=== PATIENT | female | born 1950 | race Caucasian/White ===

== ENCOUNTER 2019-02-08 15:45 | Emergency (ER) | payer MEDICARE ==
[~2019-02-08] VITALS: Ht 162.6 cm; Wt 98.0 kg
--- OUTSIDE RECORDS SUMMARY | 2019-02-08 15:48 | XMS REPORT | Clinical Summary ---
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 Active glimepiride (AMARYL) 4 MG Take 4 mg by 0 tablet mouth daily. Active HYDROcodone-acetaminophen Take 1 tablet 0 (NORCO) 10-325 mg per by mouth tablet every 8 (eight) hours as needed for moderate pain. Active insulin GLARGINE (LANTUS) Inject 70 0 100 unit/mL injection Units under (vial) the skin nightly. Active pregabalin (LYRICA) 150 Take 150 mg 0 MG capsule by mouth 3 (three) times a day. Active omeprazole (PriLOSEC) 20 Take 20 mg by 0 MG capsule mouth daily. Active rOPINIRole (REQUIP) 0.25 Take 0.25 mg 0 MG tablet by mouth nightly. Active tiZANidine (ZANAFLEX) 4 Take 4 mg by 0 MG tablet mouth every 8 (eight) hours as needed. Active coenzyme Q10 (COQ-10) 100 Take 100 mg 0 mg capsule by mouth daily. Active levothyroxine (SYNTHROID, Take 175 mcg 0 LEVOXYL) 175 mcg tablet by mouth every morning. Active rosuvastatin (CRESTOR) 20 Take 20 mg by 0 MG tablet mouth daily. Active nitroglycerin (NITROSTAT) Place 0.4 mg 0 0.4 MG SL tablet under the tongue every 5 (five) minutes as needed for chest pain. Active insulin ASPART (NovoLOG Inject 20 0 Flexpen) 100 unit/mL Units under insulin pen the skin 3 (three) times a day with meals. Active Problems Problem Noted Date Altered mental status 08/04/2017 Chest pain 03/01/2017 Social History Date Tobacco Use Types Packs/Day Years Used Quit: 1984 Former Smoker Cigarettes Smokeless Tobacco: Never Used Alcohol Use Drinks/Week oz/Week Comments Yes 1 Glasses of 0.6 once a month wine Sex Assigned at Date Recorded Not on file Industry Job Start Date Occupation Not on file Not on file Not on file Travel End Travel History Travel Start No recent travel history available. Last Filed Vital Signs Not on file Plan of Treatment Health Maintenance Due Date Last Done Comments BREAST CANCER SCREENING 1998 COLONOSCOPY SCREENING 1998 SHINGLES VACCINES (#1) 1998 INFLUENZA VACCINE 03/28/2019 05/18/2017, 05/31/2016, 07/06/2015, Additional history exists 65+ PNEUMOCOCCAL VACCINE Completed 07/18/2016, 06/24/2014, 01/20/2009 Results Not on fileafter 02/07/2018 Insurance Type Payer Benefit Subscriber ID Effective Phone Address Plan / Dates Group HMO [employer] xxxxxxxxx 2010-P ANISH nunes Advance Directives Patient has advance care planning documents, and code status on file. For more i nformation, please contact: Piter Valdez [address] [place] [address] Date Inactivated Comments Code Status Date Activated 03/02/2017 11:04 PM Full Code 03/01/2017 11:50 PM Code Status decision reached by: Patient
--- OUTSIDE RECORDS SUMMARY | 2019-02-08 15:49 | XMS REPORT | Clinical Summary ---
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 Name Role Phone Rikki Hansen MD PCP Allergies Comments Active Allergy Reactions Severity Noted Date Adhesive Rash Low 2013 Atorvastatin 05/18/2017 Celecoxib High 03/26/2013 Clindamycin Rash High 07/31/2017 Codeine Nausea And High 08/31/2013 Vomiting Iodine 03/01/2017 Iodine And Iodide Hives High 03/26/2013 Containing Products Losartan 03/01/2017 Meloxicam 03/01/2017 Pravastatin 03/01/2017 Shellfish Containing 07/31/2017 Products Shellfish Derived 03/01/2017 Sulfa (Sulfonamide Hives High 03/26/2013 Antibiotics) Rofecoxib Hives, Rash High 06/06/2007 Medications End Date Status Medication Sig Dispensed Refills Start Date Active ascorbic acid, vitamin C, Take 250 mg 0 (VITAMIN C) 250 MG tablet by mouth daily. Active saliva stimulant comb. Place in the 0 no.3 (BIOTENE mouth or MOISTURIZING MOUTH) [place] throat Active diclofenac 1 % Gel Apply 0 topically to 7 affected joints twice daily Active hydrocortisone 2.5 % Apply twice 0 lotion daily to 6 affected area on face and ears as needed Active NITROGLYCERIN SL Place 1 0 tablet under the tongue every 5 (five) minutes as needed (chest pain) . Active nystatin (MYCOSTATIN) Apply BID for 0 100,000 unit/gram powder one week then 6 prn. Active cholecalciferol, vitamin Take 2,000 0 D3, 2,000 unit Cap Units by mouth. Active DULoxetine (CYMBALTA) 60 TAKE ONE 0 MG capsule CAPSULE BY 7 MOUTH TWICE A DAY Active glimepiride (AMARYL) 4 MG TAKE ONE 0 tablet TABLET BY 7 MOUTH DAILY Active insulin aspart (NOVOLOG) 20 Units 3 0 100 unit/mL InPn (three) times 6 daily before meals . Active insulin glargine (LANTUS INJECT 70 0 SOLOSTAR) 100 unit/mL (3 UNITS UNDER 6 mL) InPn THE SKIN EVERY EVENING Active levocetirizine (XYZAL) 5 TAKE ONE 0 MG tablet TABLET BY 7 MOUTH DAILY AT 5:00 PM Active levothyroxine (SYNTHROID, Take 175 mcg 0 LEVOTHROID) 175 MCG by mouth 6 tablet Every morning on an empty stomach . Active pregabalin (LYRICA) 150 TAKE ONE 0 MG capsule CAPSULE BY 7 MOUTH TWICE A DAY Active omeprazole (PRILOSEC) 20 TAKE ONE 0 MG capsule CAPSULE BY 7 MOUTH DAILY Active rOPINIRole (REQUIP) 0.25 TAKE ONE 0 MG tablet TABLET BY 7 MOUTH EVERY NIGHT AT BEDTIME Active rosuvastatin (CRESTOR) 20 Take 20 mg by 0 MG tablet mouth nightly 7 . Active tiZANidine (ZANAFLEX) 4 TAKE ONE 0 MG tablet TABLET BY 7 MOUTH THREE TIMES A DAY NEEDED FOR MUSCLE SPASMS Active traZODone (DESYREL) 50 MG Take 50 mg by 0 tablet mouth every 6 night as needed for Sleep . Active valACYclovir (VALTREX) TAKE ONE 0 500 MG tablet TABLET BY 7 MOUTH DAILY Active coenzyme Q10 100 mg Take 100 mg 0 capsule by mouth daily . 08/12/2018 aspirin 81 MG EC tablet Take 1 tablet 0 (81 mg total) 7 by mouth daily. 08/11/2018 carvedilol (COREG) 3.125 Take 1 tablet 0 MG tablet (3.125 mg 7 total) by mouth 2 (two) times daily. 08/12/2018 clopidogrel (PLAVIX) 75 Take 1 tablet 0 mg tablet (75 mg total) 7 by mouth daily. Active Problems Problem Noted Date Syncope, unspecified syncope type 08/08/2017 Near syncope 07/31/2017 Dyspnea 07/05/2017 Hyponatremia 07/05/2017 Type 2 diabetes mellitus with hyperglycemia, with long-term current use of 07/05/2017 insulin Social History Date Tobacco Use Types Packs/Day Years Used Quit: 08/28/1979 Former Smoker Cigarettes 0.5 2.5 Smokeless Tobacco: Never Used Alcohol Use Drinks/Week oz/Week Comments Yes Occasional Sex Assigned at Date Recorded Not on file Industry Job Start Date Occupation Not on file Not on file Not on file Travel End Travel History Travel Start No recent travel history available. Last Filed Vital Signs Not on file Plan of Treatment Not on file Results Not on fileafter 02/07/2018 Insurance Payer Benefit Subscriber ID Type Phone Address Plan / Group [employer] xxxxxxxxx [facility] Advance Directives For more information, please contact: [facility] [address] [place] [address] Date Inactivated Comments Code Status Date Activated 08/11/2017 9:02 PM Full Code 08/08/2017 10:05 PM This code status was determined by: Patient 08/02/2017 7:53 PM Full Code 07/31/2017 12:28 PM This code status was determined by: Patient 07/06/2017 3:29 PM Full Code 07/05/2017 12:01 AM This code status was determined by: Patient
--- OUTSIDE RECORDS SUMMARY | 2019-02-08 15:49 | XMS REPORT ---
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 Allergies, Adverse Reactions, Alerts This patient has no known allergies or adverse reactions. Medications This patient has no known medications. Results Test Description Test Time Test Comments Text Results Atomic Results Result Comments BLOOD CULTURE 2017-08-13 23:00:00 CULTURE (BEAKER) (test quzu=1048) No growth in 5 days BLOOD [id number] 23:00:00* Test Item Value Reference Range Comments CULTURE (BEAKER) (test xswy=5318) No growth in 5 days POCT-GLUCOSE [id number] 11:47:00* Test Item Value Reference Range Comments POC-GLUCOSE METER (BEAKER) (test gdhy=5349) 158 mg/dL 70-110 TESTED AT [address] [address] POCT-GLUCOSE [id number] 10:02:00* Test Item Value Reference Range Comments POC-GLUCOSE METER (BEAKER) (test hamp=3435) 191 mg/dL 70-110 TESTED AT [address] [address] [id number] 06:32:00* Test Item Value Reference Range Comments PHOSPHORUS (BEAKER) (test uexo=338) 3.3 mg/dL 2.3-4.7 [id number] 06:32:00* Test Item Value Reference Range Comments MAGNESIUM (BEAKER) (test ujrl=542) 1.9 mg/dL 1.6-2.6 BASIC METABOLIC [id number] 06:32:00* Test Item Value Reference Range Comments SODIUM (BEAKER) (test dfqs=423) 140 meq/L 136-145 POTASSIUM (BEAKER) (test bvmr=351) 3.8 meq/L 3.5-5.1 CHLORIDE (BEAKER) (test nvry=883) 105 meq/L 98-107 CO2 (BEAKER) (test dtkw=485) 27 meq/L 22-29 BLOOD UREA NITROGEN (BEAKER) (test nucd=917) 8 mg/dL 7-21 CREATININE (BEAKER) (test jdvy=346) 0.75 mg/dL 0.57-1.25 GLUCOSE RANDOM (BEAKER) (test bskt=278) 120 mg/dL 70-105 CALCIUM (BEAKER) (test bbvr=982) 8.6 mg/dL 8.4-10.2 EGFR (BEAKER) (test rnva=4352) 77 mL/min/1.73 sq m ESTIMATED GFR IS NOT ACCURATE CREATININE CLEARANCE IN PREDICTING GLOMERULAR FILTRATION RATE. ESTIMATED GFR IS NOT APPLICABLE FOR DIALYSIS PATIENTS. CBC W/PLT COUNT & AUTO [id number] 06:15:00* Test Item Value Reference Range Comments WHITE BLOOD CELL COUNT (BEAKER) (test vepi=061) 10.6 K/ L 3.5-10.5 RED BLOOD CELL COUNT (BEAKER) (test ctvu=605) 4.22 M/ L 3.93-5.22 HEMOGLOBIN (BEAKER) (test cedz=543) 12.3 GM/DL 11.2-15.7 HEMATOCRIT (BEAKER) (test fzej=879) 37.7 % 34.1-44.9 MEAN CORPUSCULAR VOLUME (BEAKER) (test dlog=287) 89.3 fL 79.4-94.8 MEAN CORPUSCULAR HEMOGLOBIN (BEAKER) (test cxmu=763) 29.1 pg 25.6-32.2 MEAN CORPUSCULAR HEMOGLOBIN CONC (BEAKER) (test vxan=881) 32.6 GM/DL 32.2-35.5 RED CELL DISTRIBUTION WIDTH (BEAKER) (test iold=107) 14.1 % 11.7-14.4 PLATELET COUNT (BEAKER) (test tfjm=141) 212 K/CU MM 150-450 MEAN PLATELET VOLUME (BEAKER) (test rfbi=452) 10.5 fL 9.4-12.3 NUCLEATED RED BLOOD CELLS (BEAKER) (test wirq=515) 0 /100 WBC 0-0 NEUTROPHILS RELATIVE PERCENT (BEAKER) (test boqr=105) 54 % LYMPHOCYTES RELATIVE PERCENT (BEAKER) (test tmux=480) 34 % MONOCYTES RELATIVE PERCENT (BEAKER) (test sdqj=208) 8 % EOSINOPHILS RELATIVE PERCENT (BEAKER) (test olsd=257) 3 % BASOPHILS RELATIVE PERCENT (BEAKER) (test jqaa=683) 1 % NEUTROPHILS ABSOLUTE COUNT (BEAKER) (test fpxt=291) 5.72 K/ L 1.56-6.13 LYMPHOCYTES ABSOLUTE COUNT (BEAKER) (test qpci=678) 3.65 K/ L 1.18-3.74 MONOCYTES ABSOLUTE COUNT (BEAKER) (test qeye=290) 0.80 K/ L 0.24-0.36 EOSINOPHILS ABSOLUTE COUNT (BEAKER) (test awct=842) 0.35 K/ L 0.04-0.36 BASOPHILS ABSOLUTE COUNT (BEAKER) (test ojuw=680) 0.08 K/ L 0.01-0.08 IMMATURE GRANULOCYTES-RELATIVE PERCENT (BEAKER) (test gsyo=1967) 0 % 0-1 POCT-GLUCOSE [id number] 22:17:00* Test Item Value Reference Range Comments POC-GLUCOSE METER (BEAKER) (test zbqu=8134) 171 mg/dL 70-110 TESTED AT [place] [id number] [facility] [address] POCT-GLUCOSE [id number] 17:06:00* Test Item Value Reference Range Comments POC-GLUCOSE METER (BEAKER) (test nrcj=6259) 111 mg/dL 70-110 TESTED AT [address] [address] URINE [id number] 14:09:00* Test Item Value Reference Range Comments CULTURE (BEAKER) (test tuyw=7997) 20-29,000 col/mL skin rafaela POCT-GLUCOSE [id number] 11:53:00* Test Item Value Reference Range Comments POC-GLUCOSE METER (BEAKER) (test vftg=1491) 151 mg/dL 70-110 TESTED AT [place] [id number] [facility] [address] EEG AWAKE AND [id number] 10:00:00Reason for exam:->syncope, recent stroke EEG [facility] DATE: EE #: [id number] Code: #: R55: Syncope and Colla pse (ICD 9: 780.2)CPT Code: #: 12946: 02. EEG awake and asleep; 20-40 minPROCE DURE: EEG CONDITIONS OF RECORDING: This is a digital EEG performed using disc e lectrodes placed according to the International 10-20 system of electrode placem ent. Scalp to scalp and scalp to ear montages were used. No sedation was given .DESCRIPTION OF RECORD: In the best awake state, a Posterior Dominant Rhythm (P DR) was present at 9-10cycles/ second. There was no focal asymmetry in the backg round. No interictal epileptiform discharges were noted. No clinical or electrog raphic seizures were noted. Stage 2 sleep was indicated by the presence of sleep spindles and K complexes. Hyperventilation produced physiologic slowing of the background. Photic stimulation produced a bilaterally symmetric photic driving r esponse The heart rate was 64/ min.IMPRESSION: This is a normal EEG in wakefulne ss and sleep. COMMENT: A normal EEG does not rule out the diagnosis of a seizure disorder. Further clinical correlation is suggested.Clinical Fellow: Kalina Montoya aidyNeurophysiologist: Roxy Gray GLOBIN [id number] 09:55:00* Test Item Value Reference Range Comments HEMOGLOBIN A1C (BEAKER) (test cics=371) 6.9 % 4.3-6.1 POCT-GLUCOSE [id number] 09:51:00* Test Item Value Reference Range Comments POC-GLUCOSE METER (BEAKER) (test dzqr=9127) 154 mg/dL 70-110 TESTED AT [address] [address] LIPID [id number] 05:43:00* Test Item Value Reference Range Comments TRIGLYCERIDES (BEAKER) (test ukqb=632) 113 mg/dL CHOLESTEROL (BEAKER) (test daqf=487) 125 mg/dL HDL CHOLESTEROL (BEAKER) (test zsxq=708) 32 mg/dL LDL CHOLESTEROL CALCULATED (BEAKER) (test qxrs=204) 70 mg/dL Triglyceride Reference Range: Low Risk <150 Borderline 150-199 High Risk 200-499 Very High Risk >=500Cholesterol Reference Range: Low Risk <200 Borderline 200-239 High Risk >240HDL Cholesterol Reference Range: Low Risk >=60 High Risk <40LDL Cholesterol Reference Range: Optimal <100 Near Optimal 100-129 Borderline 130-159 High 160-189 Very High >=190 BASIC METABOLIC [id number] 05:43:00* Test Item Value Reference Range Comments SODIUM (BEAKER) (test lzho=310) 143 meq/L 136-145 POTASSIUM (BEAKER) (test ejzc=089) 3.4 meq/L 3.5-5.1 CHLORIDE (BEAKER) (test jnmu=639) 109 meq/L 98-107 CO2 (BEAKER) (test hazp=698) 25 meq/L 22-29 BLOOD UREA NITROGEN (BEAKER) (test aqkp=956) 9 mg/dL 7-21 CREATININE (BEAKER) (test weow=293) 0.71 mg/dL 0.57-1.25 GLUCOSE RANDOM (BEAKER) (test fioa=807) 105 mg/dL 70-105 CALCIUM (BEAKER) (test ovjk=124) 8.4 mg/dL 8.4-10.2 EGFR (BEAKER) (test oebe=9293) 82 mL/min/1.73 sq m ESTIMATED GFR IS NOT ACCURATE CREATININE CLEARANCE IN PREDICTING GLOMERULAR FILTRATION RATE. ESTIMATED GFR IS NOT APPLICABLE FOR DIALYSIS PATIENTS. [id number] 05:43:00* Test Item Value Reference Range Comments MAGNESIUM (BEAKER) (test udrq=604) 1.8 mg/dL 1.6-2.6 [id number] 05:43:00* Test Item Value Reference Range Comments PHOSPHORUS (BEAKER) (test elqq=187) 2.4 mg/dL 2.3-4.7 CBC W/PLT COUNT & AUTO [id number] 05:26:00* Test Item Value Reference Range Comments WHITE BLOOD CELL COUNT (BEAKER) (test arpf=452) 9.9 K/ L 3.5-10.5 RED BLOOD CELL COUNT (BEAKER) (test lyfk=127) 3.88 M/ L 3.93-5.22 HEMOGLOBIN (BEAKER) (test crdm=662) 11.3 GM/DL 11.2-15.7 HEMATOCRIT (BEAKER) (test wttx=578) 34.5 % 34.1-44.9 MEAN CORPUSCULAR VOLUME (BEAKER) (test nidi=485) 88.9 fL 79.4-94.8 MEAN CORPUSCULAR HEMOGLOBIN (BEAKER) (test agpm=395) 29.1 pg 25.6-32.2 MEAN CORPUSCULAR HEMOGLOBIN CONC (BEAKER) (test aavg=369) 32.8 GM/DL 32.2-35.5 RED CELL DISTRIBUTION WIDTH (BEAKER) (test wjgq=987) 14.2 % 11.7-14.4 PLATELET COUNT (BEAKER) (test rgtz=945) 205 K/CU MM 150-450 MEAN PLATELET VOLUME (BEAKER) (test plih=651) 10.8 fL 9.4-12.3 NUCLEATED RED BLOOD CELLS (BEAKER) (test ygxn=372) 0 /100 WBC 0-0 NEUTROPHILS RELATIVE PERCENT (BEAKER) (test nzkn=809) 59 % LYMPHOCYTES RELATIVE PERCENT (BEAKER) (test kulo=681) 29 % MONOCYTES RELATIVE PERCENT (BEAKER) (test tfpb=149) 8 % EOSINOPHILS RELATIVE PERCENT (BEAKER) (test eoqw=673) 3 % BASOPHILS RELATIVE PERCENT (BEAKER) (test rlsy=169) 1 % NEUTROPHILS ABSOLUTE COUNT (BEAKER) (test qrar=852) 5.80 K/ L 1.56-6.13 LYMPHOCYTES ABSOLUTE COUNT (BEAKER) (test hbdi=931) 2.89 K/ L 1.18-3.74 MONOCYTES ABSOLUTE COUNT (BEAKER) (test flmp=630) 0.80 K/ L 0.24-0.36 EOSINOPHILS ABSOLUTE COUNT (BEAKER) (test hjmk=015) 0.32 K/ L 0.04-0.36 BASOPHILS ABSOLUTE COUNT (BEAKER) (test qksn=542) 0.06 K/ L 0.01-0.08 IMMATURE GRANULOCYTES-RELATIVE PERCENT (BEAKER) (test frtn=7767) 0 % 0-1 POCT-GLUCOSE [id number] 21:13:00* Test Item Value Reference Range Comments POC-GLUCOSE METER (BEAKER) (test mzha=2069) 205 mg/dL 70-[address] [facility] [address] [facility] [address] POCT-GLUCOSE [id number] 17:52:00* Test Item Value Reference Range Comments POC-GLUCOSE METER (BEAKER) (test aatx=9474) 170 mg/dL 70-[address] [facility] [address] [facility] [address] MR, BRAIN, WITHOUT [id number] 16:37:00Reason for exam:->Ischemic Stroke EvaluationFINAL REPORT MRI brain without contrast INDICATION: Stroke, syncope, fainting TECHNIQUE: Multiplanar, multisequence MR imaging of the brain was performed utilizing the following imaging sequences: Axial T2, FLAIR, GRE, and DWI; sagittal and coronal T1 COMPARISON: CT head 08/08/2017, 07/31/2017 FINDINGS:There is a recent infarct involving the left caudate nucleus body, adjacent internal capsule, and lentiform nucleus. There is also a small recent inferior right cerebellar infarct. 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 The major proximal [place] flow voids are maintained. There is generalized parenchymal volume loss. The sella, craniocervical junction, and orbits are unremarkable. There is mild right and minimal left mastoid air cell fluid with well aerated sinuses. There is heterogeneous marrow signal with calvarial hyperostosis. IMPRESSION: 1. Recent nonhemorrhagic small volume left striatocapsular and right cerebellar infarcts. 2. Chronic white matter changes suggesting microvascular ischemia with lacunar infarcts. 3. Additional chronic and involutional findings as discussed. Signed: Raul Alva [facility] Verified Date/Time: 08/09/2017 16:37:09 Reading Location: [address] Consult Reading Room , MRA, BRAIN, WITHOUT [id number] 16:25:00Reason for exam:-> Ischemic Stroke EvaluationFINAL REPORT MRA head and neck without contrast INDICATION: Stroke, syncope, fainting TECHNIQUE: 2-D and 3-D lqjp-mu-akxffe MRA images of the intra- and extracranial carotid and vertebral artery circulations were obtained, from which maximal intensity projection reconstructions were generated. COMPARISON: None available FINDINGS: MRA neck:There is carotid bifurcation and bulb mural thickening suggesting atherosclerosis without measurable ICA stenosis bilaterally by NASCET criteria. Bilateral mid to distal cervical ICA irregular contour is suspicious for fibromuscular dysplasia. There is antegrade flow in the cervical vertebral arteries without flow limitation. The left vertebral artery is dominant. The right vertebral artery origin is not imaged. Multilevel cervical spine degenerative changes are suboptimally depicted on this exam, with up to moderate mid cervical spinal canal stenosis. Dedicated spinal imaging can be obtained as clinically warranted. 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 Carotid siphon contour irregularities to suggest atherosclerosis. No flow limiting proximal [place] vessel stenosis or major branch occlusion is seen. Allowing for motion, no definite aneurysm is identified. IMPRESSION: 1. No hemodynamically significant cervical carotid artery stenosis by NASCET criteria. 2. Bilateral mid to distal cervical ICA irregularity suspicious for fibromu scular dysplasia. 3. No significant stenosis in the imaged cervical vertebral ar teries. 4. No [place] major branch occlusion or flow limiting stenosis. Signed: Raul Alva MDReport Verified Date/Time: 08/09/2017 16:25:25 Reading Location: [address] Consult Reading Room , MRA, NECK, WITHOUT IV [id number] 16:25:00Reason for exam:->Ischemic Stroke EvaluationFINAL REPORT MRA head and neck without contrast INDICATION: Stroke, syncope, fainting TECHNIQUE: 2-D and 3-D pdhh-fx-bajted MRA images of the intra- and extracranial carotid and vertebral artery circulations were obta ined, from which maximal intensity projection reconstructions were generated. CO MPARISON: None available FINDINGS: MRA neck:There is carotid bifurcation and bul b mural thickening suggesting atherosclerosis without measurable ICA stenosis bi laterally by NASCET criteria. Bilateral mid to distal cervical ICA irregular con tour is suspicious for fibromuscular dysplasia. There is antegrade flow in the c ervical vertebral arteries without flow limitation. The left vertebral artery is dominant. The right vertebral artery origin is not imaged. Multilevel cervical spine degenerative changes are suboptimally depicted on this exam, with up to mo derate mid cervical spinal canal stenosis. Dedicated spinal imaging can be obtai avani as clinically warranted. 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 Carotid siphon contour irregularities to suggest atherosclerosis. No fl ow limiting proximal [place] vessel stenosis or major branch occlusion is seen. Allowing for motion, no definite aneurysm is identified. IMPRESSION: 1. No hemodynamically significant cervical carotid artery stenosis by NASCET crite leonid. 2. Bilateral mid to distal cervical ICA irregularity suspicious for fibromu scular dysplasia. 3. No significant stenosis in the imaged cervical vertebral ar teries. 4. No [place] major branch occlusion or flow limiting stenosis. Signed: Raul Alva MDReport Verified Date/Time: 08/09/2017 16:25:25 Reading Location: [id number] Consult Reading Room -GLUCOSE [id number] 11:48:00* Test Item Value Reference Range Comments POC-GLUCOSE METER (BEAKER) (test cipj=8232) 114 mg/dL 70-110 TESTED AT [place] [id number] [facility] [address] TSH/FREE T4 IF [id number] 11:13:00* Test Item Value Reference Range Comments THYROID STIMULATING HORMONE (BEAKER) (test lerw=818) 1.95 uIU/mL 0.35-4.94 POCT-GLUCOSE [id number] 08:10:00* Test Item Value Reference Range Comments POC-GLUCOSE METER (BEAKER) (test fogm=4854) 149 mg/dL 70-[address] [facility] [address] [facility] [address] [id number] 08:01:00* Test Item Value Reference Range Comments PHOSPHORUS (BEAKER) (test qacq=667) 2.8 mg/dL 2.3-4.7 [id number] 08:01:00* Test Item Value Reference Range Comments MAGNESIUM (BEAKER) (test lwtd=100) 1.6 mg/dL 1.6-2.6 BASIC METABOLIC [id number] 08:01:00* Test Item Value Reference Range Comments SODIUM (BEAKER) (test hmgz=300) 143 meq/L 136-145 POTASSIUM (BEAKER) (test kxpo=986) 3.7 meq/L 3.5-5.1 CHLORIDE (BEAKER) (test buqv=168) 112 meq/L 98-107 CO2 (BEAKER) (test ddih=029) 22 meq/L 22-29 BLOOD UREA NITROGEN (BEAKER) (test ypft=857) 11 mg/dL 7-21 CREATININE (BEAKER) (test kunu=484) 0.80 mg/dL 0.57-1.25 GLUCOSE RANDOM (BEAKER) (test yvuv=523) 145 mg/dL 70-105 CALCIUM (BEAKER) (test ghho=739) 8.1 mg/dL 8.4-10.2 EGFR (BEAKER) (test ajww=7728) 71 mL/min/1.73 sq m ESTIMATED GFR IS NOT ACCURATE CREATININE CLEARANCE IN PREDICTING GLOMERULAR FILTRATION RATE. ESTIMATED GFR IS NOT APPLICABLE FOR DIALYSIS PATIENTS. [id number] 07:55:00* Test Item Value Reference Range Comments CORTISOL, TOTAL (BEAKER) (test deru=5056) 10.4 ug/dL 3.7-19.4 CBC W/PLT COUNT & AUTO [id number] 07:33:00* Test Item Value Reference Range Comments WHITE BLOOD CELL COUNT (BEAKER) (test mplp=867) 8.5 K/ L 3.5-10.5 RED BLOOD CELL COUNT (BEAKER) (test dpwi=791) 3.70 M/ L 3.93-5.22 HEMOGLOBIN (BEAKER) (test dpcp=856) 10.9 GM/DL 11.2-15.7 HEMATOCRIT (BEAKER) (test oecy=310) 33.7 % 34.1-44.9 MEAN CORPUSCULAR VOLUME (BEAKER) (test mpdq=983) 91.1 fL 79.4-94.8 MEAN CORPUSCULAR HEMOGLOBIN (BEAKER) (test vkka=946) 29.5 pg 25.6-32.2 MEAN CORPUSCULAR HEMOGLOBIN CONC (BEAKER) (test nemo=356) 32.3 GM/DL 32.2-35.5 RED CELL DISTRIBUTION WIDTH (BEAKER) (test alaw=857) 14.2 % 11.7-14.4 PLATELET COUNT (BEAKER) (test rxec=805) 184 K/CU MM 150-450 Discordant result compared to previous result; clinical correlation required.' MEAN PLATELET VOLUME (BEAKER) (test ncqn=273) 10.9 fL 9.4-12.3 NUCLEATED RED BLOOD CELLS (BEAKER) (test jqpf=480) 0 /100 WBC 0-0 NEUTROPHILS RELATIVE PERCENT (BEAKER) (test stwq=287) 57 % LYMPHOCYTES RELATIVE PERCENT (BEAKER) (test jrpj=454) 30 % MONOCYTES RELATIVE PERCENT (BEAKER) (test ztki=662) 8 % EOSINOPHILS RELATIVE PERCENT (BEAKER) (test pcdj=421) 4 % BASOPHILS RELATIVE PERCENT (BEAKER) (test ykhf=919) 1 % NEUTROPHILS ABSOLUTE COUNT (BEAKER) (test ioyd=119) 4.87 K/ L 1.56-6.13 LYMPHOCYTES ABSOLUTE COUNT (BEAKER) (test hstb=800) 2.50 K/ L 1.18-3.74 MONOCYTES ABSOLUTE COUNT (BEAKER) (test ubrd=798) 0.65 K/ L 0.24-0.36 EOSINOPHILS ABSOLUTE COUNT (BEAKER) (test zmhd=097) 0.36 K/ L 0.04-0.36 BASOPHILS ABSOLUTE COUNT (BEAKER) (test mcth=933) 0.07 K/ L 0.01-0.08 IMMATURE GRANULOCYTES-RELATIVE PERCENT (BEAKER) (test tvca=6294) 0 % 0-1 TROPONIN [id number] 07:22:00* Test Item Value Reference Range Comments TROPONIN I (BEAKER) (test ntdf=638) 0.02 ng/mL 0.00-0.03 Troponin I (TnI) levels must be interpreted in the context of the presenting sym ptoms and the clinical findings. Elevated TnI levels indicate myocardial damage, but are not specific for ischemic heart disease. Elevated TnI levels are seen in patients with other cardiac conditions (including myocarditis and congestive h eart failure), and slight TnI elevations occur in patients with other conditions , including sepsis, renal failure, acidosis, acute neurological disease, and per sistent tachyarrhythmia.TROPONIN [id number] 00:51:00* Test Item Value Reference Range Comments TROPONIN I (BEAKER) (test sxza=659) < ng/mL 0.00-0.03 Troponin I (TnI) levels must be interpreted in the context of the presenting sym ptoms and the clinical findings. Elevated TnI levels indicate myocardial damage, but are not specific for ischemic heart disease. Elevated TnI levels are seen in patients with other cardiac conditions (including myocarditis and congestive h eart failure), and slight TnI elevations occur in patients with other conditions , including sepsis, renal failure, acidosis, acute neurological disease, and per sistent tachyarrhythmia.POCT-GLUCOSE [id number] 21:44:00* Test Item Value Reference Range Comments POC-GLUCOSE METER (BEAKER) (test wdgc=4690) 202 mg/dL 70-[address] [facility] [address] [facility] [address] URINALYSIS W/ [id number] 17:23:00* Test Item Value Reference Range Comments COLOR (BEAKER) (test icpr=795) Araseli CLARITY (BEAKER) (test povn=425) Slightly Cloudy SPECIFIC GRAVITY UA (BEAKER) (test tjwj=467) 1.020 1.001-1.035 PH UA (BEAKER) (test weyk=189) 5.5 5.0-8.0 PROTEIN UA (BEAKER) (test lwns=012) 30 mg/dL Negative GLUCOSE UA (BEAKER) (test ulqf=498) Negative Negative KETONES UA (BEAKER) (test qjse=877) Trace Negative BILIRUBIN UA (BEAKER) (test meam=763) Positive Negative BLOOD UA (BEAKER) (test utnn=064) Negative Negative NITRITE UA (BEAKER) (test rttj=782) Negative Negative LEUKOCYTE ESTERASE UA (BEAKER) (test hmuh=120) Negative Negative UROBILINOGEN UA (BEAKER) (test xzxl=963) 1.0 mg/dL 0.2-1.0 BACTERIA (BEAKER) (test dgyi=596) Moderate MUCUS (BEAKER) (test yong=6954) Moderate RBC UA-MANUAL (BEAKER) (test htsm=7854) None Seen /HPF WBC UA-MANUAL (BEAKER) (test yssw=7586) 5-10 /HPF HYALINE CASTS MANUAL (BEAKER) (test srmm=6421) 10-20 /LPF SOURCE(BEAKER) (test zahx=8676) RAPID [id number] 15:24:00* Test Item Value Reference Range Comments RAPID CKMB (BEAKER) (test pdcq=8241) 2.3 ng/mL 0.0-4.3 RAPID [id number] 15:24:00* Test Item Value Reference Range Comments RAPID MYOGLOBIN (BEAKER) (test etvy=8505) 158 ng/mL <107 RAPID TROPONIN [id number] 15:24:00* Test Item Value Reference Range Comments RAPID TROPONIN I (BEAKER) (test wwxz=3099) < ng/mL <0.05 B-TYPE NATRIURETIC FACTOR (BNP)2017-08-08 15:23:00* Test Item Value Reference Range Comments B-TYPE NATRIURETIC PEPTIDE (BEAKER) (test tkpm=770) 19 pg/mL 0-100 [id number] 15:22:00* Test Item Value Reference Range Comments PROTIME (BEAKER) (test hlhf=322) 10.9 seconds 9.8-12.0 INR (BEAKER) (test hcgu=713) 1.0 <=5.9 PARTIAL THROMBOPLASTIN TIME (BEAKER) (test dicz=475) 22.6 seconds 25.8-34.5 RECOMMENDED COUMADIN/WARFARIN INR THERAPY RANGESSTANDARD DOSE: 2.0 - 3.0 Inclu denia: PROPHYLAXIS for venous thrombosis, systemic embolization; TREATMENT for sugey ous thrombosis and/or pulmonary embolus.HIGH RISK: Target INR is 2.5-3.5 for pat ients with mechanical heart valves.CBC W/PLT COUNT & AUTO [id number] 15:21:00* Test Item Value Reference Range Comments WHITE BLOOD CELL COUNT (BEAKER) (test tnwo=773) 10.4 10e3/ L 4.0-10.0 RED BLOOD CELL COUNT (BEAKER) (test oalv=127) 4.17 10e6/ L 4.00-5.00 HEMOGLOBIN (BEAKER) (test ukja=709) 12.4 g/dL 12.0-15.0 HEMATOCRIT (BEAKER) (test kpnm=220) 37.3 % 36.0-45.0 MEAN CORPUSCULAR VOLUME (BEAKER) (test cgmv=344) 89.2 fL 82.0-99.0 MEAN CORPUSCULAR HEMOGLOBIN (BEAKER) (test cjon=860) 29.8 pg 27.0-33.0 MEAN CORPUSCULAR HEMOGLOBIN CONC (BEAKER) (test hcor=606) 33.4 g/dL 32.0-36.0 RED CELL DISTRIBUTION WIDTH (BEAKER) (test padr=997) 13.3 % 10.3-14.2 PLATELET COUNT (BEAKER) (test wgdh=777) 246 10e3/ L 150-430 MEAN PLATELET VOLUME (BEAKER) (test rllw=644) 8.2 fL 6.5-10.5 NEUTROPHILS RELATIVE PERCENT (BEAKER) (test vdoc=092) 56 % LYMPHOCYTES RELATIVE PERCENT (BEAKER) (test yzkw=219) 33 % MONOCYTES RELATIVE PERCENT (BEAKER) (test ptee=127) 7 % EOSINOPHILS RELATIVE PERCENT (BEAKER) (test mwse=689) 4 % BASOPHILS RELATIVE PERCENT (BEAKER) (test ptiy=392) 1 % NEUTROPHILS ABSOLUTE COUNT (BEAKER) (test ocyc=586) 5.78 10e3/ L 1.80-8.00 LYMPHOCYTES ABSOLUTE COUNT (BEAKER) (test vekv=076) 3.38 10e3/ L 1.48-4.50 MONOCYTES ABSOLUTE COUNT (BEAKER) (test rwdd=757) 0.76 10e3/ L 0.00-1.30 EOSINOPHILS ABSOLUTE COUNT (BEAKER) (test eabk=253) 0.41 10e3/ L 0.00-0.50 BASOPHILS ABSOLUTE COUNT (BEAKER) (test iyty=731) 0.07 10e3/ L 0.00-0.20 [id number] 15:21:00* Test Item Value Reference Range Comments MAGNESIUM (BEAKER) (test uwmp=872) 1.7 mg/dL 1.5-3.0 BASIC METABOLIC [id number] 15:21:00* Test Item Value Reference Range Comments SODIUM (BEAKER) (test cheu=870) 143 meq/L 135-148 POTASSIUM (BEAKER) (test nzku=518) 4.7 meq/L 3.6-5.5 CHLORIDE (BEAKER) (test xvxh=366) 104 meq/L 98-106 CO2 (BEAKER) (test nwok=702) 24 meq/L 24-32 BLOOD UREA NITROGEN (BEAKER) (test qwxh=928) 15 mg/dL 10-26 CREATININE (BEAKER) (test iwqe=130) 0.93 mg/dL 0.50-1.20 GLUCOSE RANDOM (BEAKER) (test stan=620) 155 mg/dL 70-110 CALCIUM (BEAKER) (test unxa=401) 8.0 mg/dL 8.5-10.5 EGFR (BEAKER) (test pigo=4074) 60 mL/min/1.73 sq m ESTIMATED GFR IS NOT ACCURATE CREATININE CLEARANCE IN PREDICTING GLOMERULAR FILTRATION RATE. ESTIMATED GFR IS NOT APPLICABLE FOR DIALYSIS PATIENTS. HEPATIC FUNCTION [id number] 15:21:00* Test Item Value Reference Range Comments TOTAL PROTEIN (BEAKER) (test hbbx=126) 6.4 gm/dL 6.0-8.5 ALBUMIN (BEAKER) (test iwov=5169) 3.6 g/dL 3.5-5.0 BILIRUBIN TOTAL (BEAKER) (test rstb=826) 1.0 mg/dL 0.1-1.2 BILIRUBIN DIRECT (BEAKER) (test muxx=230) 0.4 mg/dL 0.0-0.4 ALKALINE PHOSPHATASE (BEAKER) (test uhlu=196) 52 U/L 30-115 AST (SGOT) (BEAKER) (test xjos=967) 24 U/L 5-40 ALT (SGPT) (BEAKER) (test kbfj=129) 28 U/L 5-50 CREATINE KINASE (CK)2017-08-08 15:21:00* Test Item Value Reference Range Comments CREATINE KINASE TOTAL (BEAKER) (test aznp=091) 124 U/L 25-235 [id number] 15:21:00* Test Item Value Reference Range Comments LIPASE (BEAKER) (test peaa=706) 53 U/L 40-240 LACTIC ACID, VENOUS, WHOLE [id number] 15:17:00* Test Item Value Reference Range Comments LACTATE BLOOD VENOUS (2) (BEAKER) (test doiz=3385) 1.7 mmol/L 0.5-2.2 Effective 12/30/2015: Units/Reference Range ChangeNew: 0.5-2.2 mmol/L Previous: 5 -18 mg/dLCT, BRAIN, WITHOUT [id number] 14:38:00FINAL REPORT CT Head without contrast CLINICAL HISTORY: Syncope/fainting TECHNIQUE: Contiguous axial images through the head without contrast. This exam was performed according to the departmental dose optimization program which includes automated exposure control, adjustment of the mA and/or kV according to the patient size, and/or use of an iterative reconstruction technique. COMPARISON: 07/31/2017 FINDINGS: The chronic lacunar infarct of the left caudate head is again seen. There is a new recent appearing infarct of the left caudate body. There is no hemorrhage. There are atherosclerotic calcifications of the intracranial circulation. There is mild generalized parenchymal volume loss wi thout hydrocephalus, midline shift, or apparent mass effect. There are no extra- axial fluid collections. The skull is intact. The visualized paranasal sinuses a re well-aerated. IMPRESSION: Since 07/31/2017, new recent appearing infarct of t he left caudate body. Chronic lacunar infarct of the left caudate head again see n. No hemorrhage. Signed: Agustin Shah Verified Date/Time: 08/08/2017 14:38:57 Reading Location: [facility] Radiology Reading Room Electronic ally signed by: AGUSTIN SHAH M.D. on 08/08/2017 02:38 PM RAD, CHEST, 1 VIEW, NON [id number] 14:37:00Reason for exam:->sobFINAL REPORT Chest, 1 view Clinical history: sob Comparison: 07/31/2017 Discussion: There is no pneumothorax, pulmonary edema or pleural effusion. There is mild bibasilar atelectasis without focal consolidation. The cardiac silhouette appears magnified by portable technique. The osseous structures demonstrate mild degenerative change. Signed: Álvaro Mina Verified Date/Time: 08/08/2017 14:37:00 Reading Location: [facility] [id number] Ortho Consult Reading Room D CULTURE 2017-08-05 17:00:00* Test Item Value Reference Range Comments CULTURE (BEAKER) (test fjau=6182) No growth in 5 days BLOOD [id number] 17:00:00* Test Item Value Reference Range Comments CULTURE (BEAKER) (test adqq=0774) No growth in 5 days URINE [id number] 14:02:00* Test Item Value Reference Range Comments CULTURE (BEAKER) (test qgju=5247) See comment <10,000 col/mL Gram negative mabl04-20,000 col/mL skin floraPOCT-GLUCOSE METER 2017-08-02 10:37:00* Test Item Value Reference Range Comments POC-GLUCOSE METER (BEAKER) (test nzja=9006) 255 mg/dL 70-110 TESTED AT [address] [address] POCT-GLUCOSE [id number] 07:48:00* Test Item Value Reference Range Comments POC-GLUCOSE METER (BEAKER) (test ywic=0320) 175 mg/dL 70-110 TESTED AT [address] [address] URINALYSIS W/ [id number] 21:18:00* Test Item Value Reference Range Comments COLOR (BEAKER) (test jxgl=510) Light Yellow CLARITY (BEAKER) (test dqzc=511) Clear SPECIFIC GRAVITY UA (BEAKER) (test fpjt=914) 1.005 1.001-1.035 PH UA (BEAKER) (test dnir=869) 6.5 5.0-8.0 PROTEIN UA (BEAKER) (test zowk=372) Negative Negative GLUCOSE UA (BEAKER) (test ilkc=172) Negative Negative KETONES UA (BEAKER) (test ywnl=219) Negative Negative BILIRUBIN UA (BEAKER) (test alej=665) Negative Negative BLOOD UA (BEAKER) (test jrgc=194) Negative Negative NITRITE UA (BEAKER) (test vixa=786) Negative Negative LEUKOCYTE ESTERASE UA (BEAKER) (test nahj=759) Negative Negative UROBILINOGEN UA (BEAKER) (test evmn=692) 0.2 mg/dL 0.2-1.0 RBC UA (BEAKER) (test upvi=164) < /HPF WBC UA (BEAKER) (test lnfv=808) < /HPF BACTERIA (BEAKER) (test pvtv=192) Rare SOURCE(BEAKER) (test shkr=8168) Urine, Voided POCT-GLUCOSE [id number] 20:55:00* Test Item Value Reference Range Comments POC-GLUCOSE METER (BEAKER) (test gcfc=6080) 160 mg/dL 70-110 TESTED AT [address] [address] POCT-GLUCOSE [id number] 17:58:00* Test Item Value Reference Range Comments POC-GLUCOSE METER (BEAKER) (test rzeh=0239) 169 mg/dL 70-110 TESTED AT [address] [address] POCT-GLUCOSE [id number] 15:24:00* Test Item Value Reference Range Comments POC-GLUCOSE METER (BEAKER) (test ghgy=6915) 224 mg/dL 70-[address] [facility] [address] [facility] [address] POCT-GLUCOSE [id number] 11:58:00* Test Item Value Reference Range Comments POC-GLUCOSE METER (BEAKER) (test vaeh=1954) 178 mg/dL 70-110 TESTED AT [place] [id number] [facility] [address] POCT-GLUCOSE [id number] 07:44:00* Test Item Value Reference Range Comments POC-GLUCOSE METER (BEAKER) (test aziy=0927) 146 mg/dL 70-110 TESTED AT [place] [id number] [facility] [address] TSH/FREE T4 IF [id number] 07:00:00* Test Item Value Reference Range Comments THYROID STIMULATING HORMONE (BEAKER) (test otar=349) 1.62 uIU/mL 0.35-4.94 [id number] 06:44:00* Test Item Value Reference Range Comments PHOSPHORUS (BEAKER) (test odtj=686) 2.3 mg/dL 2.3-4.7 [id number] 06:44:00* Test Item Value Reference Range Comments MAGNESIUM (BEAKER) (test toxk=213) 1.8 mg/dL 1.6-2.6 BASIC METABOLIC [id number] 06:44:00* Test Item Value Reference Range Comments SODIUM (BEAKER) (test jqbb=716) 143 meq/L 136-145 POTASSIUM (BEAKER) (test rlyh=089) 3.6 meq/L 3.5-5.1 CHLORIDE (BEAKER) (test dqdh=562) 109 meq/L 98-107 CO2 (BEAKER) (test dfdv=374) 26 meq/L 22-29 BLOOD UREA NITROGEN (BEAKER) (test kiel=261) 12 mg/dL 7-21 CREATININE (BEAKER) (test ussq=690) 0.78 mg/dL 0.57-1.25 GLUCOSE RANDOM (BEAKER) (test issa=171) 144 mg/dL 70-105 CALCIUM (BEAKER) (test hzkk=728) 8.3 mg/dL 8.4-10.2 EGFR (BEAKER) (test xqpx=0396) 73 mL/min/1.73 sq m ESTIMATED GFR IS NOT ACCURATE CREATININE CLEARANCE IN PREDICTING GLOMERULAR FILTRATION RATE. ESTIMATED GFR IS NOT APPLICABLE FOR DIALYSIS PATIENTS. CBC W/PLT COUNT & AUTO [id number] 05:58:00* Test Item Value Reference Range Comments WHITE BLOOD CELL COUNT (BEAKER) (test qwpn=452) 9.5 K/ L 3.5-10.5 RED BLOOD CELL COUNT (BEAKER) (test dpjr=143) 3.93 M/ L 3.93-5.22 HEMOGLOBIN (BEAKER) (test lobq=974) 11.4 GM/DL 11.2-15.7 HEMATOCRIT (BEAKER) (test ubil=341) 35.3 % 34.1-44.9 MEAN CORPUSCULAR VOLUME (BEAKER) (test utki=165) 89.8 fL 79.4-94.8 MEAN CORPUSCULAR HEMOGLOBIN (BEAKER) (test vzsa=258) 29.0 pg 25.6-32.2 MEAN CORPUSCULAR HEMOGLOBIN CONC (BEAKER) (test klkv=222) 32.3 GM/DL 32.2-35.5 RED CELL DISTRIBUTION WIDTH (BEAKER) (test vjrs=277) 14.0 % 11.7-14.4 PLATELET COUNT (BEAKER) (test gcpc=211) 212 K/CU MM 150-450 MEAN PLATELET VOLUME (BEAKER) (test ludc=124) 10.7 fL 9.4-12.3 NUCLEATED RED BLOOD CELLS (BEAKER) (test tahn=646) 0 /100 WBC 0-0 NEUTROPHILS RELATIVE PERCENT (BEAKER) (test fvrr=875) 60 % LYMPHOCYTES RELATIVE PERCENT (BEAKER) (test ofse=106) 28 % MONOCYTES RELATIVE PERCENT (BEAKER) (test labj=129) 7 % EOSINOPHILS RELATIVE PERCENT (BEAKER) (test asey=475) 4 % BASOPHILS RELATIVE PERCENT (BEAKER) (test flxi=426) 1 % NEUTROPHILS ABSOLUTE COUNT (BEAKER) (test lrku=758) 5.64 K/ L 1.56-6.13 LYMPHOCYTES ABSOLUTE COUNT (BEAKER) (test fgbt=256) 2.69 K/ L 1.18-3.74 MONOCYTES ABSOLUTE COUNT (BEAKER) (test xupi=629) 0.62 K/ L 0.24-0.36 EOSINOPHILS ABSOLUTE COUNT (BEAKER) (test zmyb=263) 0.39 K/ L 0.04-0.36 BASOPHILS ABSOLUTE COUNT (BEAKER) (test mdzn=298) 0.09 K/ L 0.01-0.08 IMMATURE GRANULOCYTES-RELATIVE PERCENT (BEAKER) (test kpni=2438) 0 % 0-1 POCT-GLUCOSE [id number] 21:04:00* Test Item Value Reference Range Comments POC-GLUCOSE METER (BEAKER) (test xpup=1740) 147 mg/dL 70-110 TESTED AT [address] [address] POCT-GLUCOSE [id number] 19:20:00* Test Item Value Reference Range Comments POC-GLUCOSE METER (BEAKER) (test oanu=8043) 153 mg/dL 70-110 TESTED AT [address] [address] CREATINE KINASE (CK), TOTAL AND [id number] 11:27:00* Test Item Value Reference Range Comments CREATINE KINASE TOTAL (BEAKER) (test ujqz=159) 160 U/L 29-200 CREATINE KINASE-MB (BEAKER) (test mgld=113) 3.4 ng/mL 0.0-6.6 CREATINE KINASE-MB INDEX (BEAKER) (test jbbp=616) 2.1 % CK-MB Reference Range:<6.7 Normal6.7-10.0 Borderline>10.0 Abnormal TROPONIN [id number] 11:27:00* Test Item Value Reference Range Comments TROPONIN I (BEAKER) (test lpal=338) 0.01 ng/mL 0.00-0.03 Troponin I (TnI) levels must be interpreted in the context of the presenting sym ptoms and the clinical findings. Elevated TnI levels indicate myocardial damage, but are not specific for ischemic heart disease. Elevated TnI levels are seen in patients with other cardiac conditions (including myocarditis and congestive h eart failure), and slight TnI elevations occur in patients with other conditions , including sepsis, renal failure, acidosis, acute neurological disease, and per sistent tachyarrhythmia.POCT-LACTIC ACID, [id number] 11:18:00* Test Item Value Reference Range Comments POC-LACTIC ACID, VENOUS (BEAKER) (test fusd=1590) 1.2 mmol/L 0.9-1.7 TESTED AT [place] [address] [facility] [address] BASIC METABOLIC [id number] 11:15:00* Test Item Value Reference Range Comments SODIUM (BEAKER) (test wpzl=333) 140 meq/L 136-145 POTASSIUM (BEAKER) (test tdpv=368) 4.3 meq/L 3.5-5.1 CHLORIDE (BEAKER) (test jysy=207) 105 meq/L 98-107 CO2 (BEAKER) (test ntqu=432) 26 meq/L 22-29 BLOOD UREA NITROGEN (BEAKER) (test iovf=739) 14 mg/dL 7-21 CREATININE (BEAKER) (test vhtp=180) 0.83 mg/dL 0.57-1.25 GLUCOSE RANDOM (BEAKER) (test cfdd=742) 209 mg/dL 70-105 CALCIUM (BEAKER) (test ptmz=842) 8.4 mg/dL 8.4-10.2 EGFR (BEAKER) (test knib=0095) 68 mL/min/1.73 sq m ESTIMATED GFR IS NOT ACCURATE CREATININE CLEARANCE IN PREDICTING GLOMERULAR FILTRATION RATE. ESTIMATED GFR IS NOT APPLICABLE FOR DIALYSIS PATIENTS. RAD, CHEST, 1 VIEW, NON [id number] 11:08:00Reason for exam:->CHEST PAINShould this be performed at the bedside?->YesFINAL REPORT Chest one view. Clinical history: CHEST PAIN Comparison: July 06, 2017 Discussion: A frontal chest is provided. The cardiac and mediastinal contours are unremarkable. There is no pneumothorax, jalen pulmonary edema, consolidation or significant pleural effusion. The bony structures demonstrate degenerative changes. Signed: Channing Beniteseport Verified Date/Time: 07/31/2017 11:08:32 Reading Location: [facility] Radiology Reading Room W/PLT COUNT & AUTO [id number] 11:03:00* Test Item Value Reference Range Comments WHITE BLOOD CELL COUNT (BEAKER) (test xnpf=709) 9.0 K/ L 3.5-10.5 RED BLOOD CELL COUNT (BEAKER) (test iomt=988) 3.91 M/ L 3.93-5.22 HEMOGLOBIN (BEAKER) (test klbr=651) 11.4 GM/DL 11.2-15.7 HEMATOCRIT (BEAKER) (test ntmb=119) 34.9 % 34.1-44.9 MEAN CORPUSCULAR VOLUME (BEAKER) (test qmhy=843) 89.3 fL 79.4-94.8 MEAN CORPUSCULAR HEMOGLOBIN (BEAKER) (test qoki=852) 29.2 pg 25.6-32.2 MEAN CORPUSCULAR HEMOGLOBIN CONC (BEAKER) (test xmtc=760) 32.7 GM/DL 32.2-35.5 RED CELL DISTRIBUTION WIDTH (BEAKER) (test hksl=514) 14.1 % 11.7-14.4 PLATELET COUNT (BEAKER) (test iacy=093) 207 K/CU MM 150-450 MEAN PLATELET VOLUME (BEAKER) (test mxgd=382) 10.5 fL 9.4-12.3 NUCLEATED RED BLOOD CELLS (BEAKER) (test dgnt=288) 0 /100 WBC 0-0 NEUTROPHILS RELATIVE PERCENT (BEAKER) (test kuzr=114) 56 % LYMPHOCYTES RELATIVE PERCENT (BEAKER) (test xzaa=245) 29 % MONOCYTES RELATIVE PERCENT (BEAKER) (test irut=887) 9 % EOSINOPHILS RELATIVE PERCENT (BEAKER) (test eeqe=755) 5 % BASOPHILS RELATIVE PERCENT (BEAKER) (test crla=903) 1 % NEUTROPHILS ABSOLUTE COUNT (BEAKER) (test fcuq=689) 5.06 K/ L 1.56-6.13 LYMPHOCYTES ABSOLUTE COUNT (BEAKER) (test kdbz=608) 2.61 K/ L 1.18-3.74 MONOCYTES ABSOLUTE COUNT (BEAKER) (test kqfr=186) 0.79 K/ L 0.24-0.36 EOSINOPHILS ABSOLUTE COUNT (BEAKER) (test htfs=122) 0.41 K/ L 0.04-0.36 BASOPHILS ABSOLUTE COUNT (BEAKER) (test uatt=090) 0.10 K/ L 0.01-0.08 IMMATURE GRANULOCYTES-RELATIVE PERCENT (BEAKER) (test rysl=6607) 0 % 0-1 CT, BRAIN/STROKE [id number] 10:40:00Reason for exam:->NEAR SYNCOPEReason for exam:->ALTERED MENTAL STATUSWhat is the patient's sedation requirement?->No SedationFINAL REPORT CT head without contrast INDICATION: Near syncope, hypotension, drowsy, altered mental status TECHNIQUE: Axial noncontrast CT images through the head were obtained. Imaging was performed within 24 hours of arrival at the facility. This exam was performed according to our departmental dose optimization program which includes automated exposure control, adjustment of the mA and/or kV according to patient size and/or use of iterative reconstruction technique. COMPARISON: CT head 01/09/2003 FINDINGS:There is no acute intracranial hemorrhage or mass effect. No acute territorial infarct is evident on CT. Microvascular ischemia is present, including a small left caudate nucleus lacunar infarct, but no definite acute features. Please note that CT is insensitive for early or small infarcts. Mild vascular calcifications are noted. There is no hydrocephalus or midline shift. There is mild right and trace left mastoid air cell fluid. The imaged sinuses and orbits are unremarkable. There are small foci of gas in the left temporal scalp and infratemporal fossa and left facial tissues. This could relate to recent IV access. If gas extension from the chest or neck is of concern, advise dedicated imaging. IMPRESSION: No acute intracranial hemorrhage or mass effect. No specific CT findings of acute territorial infarct. Microvascular ischemic changes for which further characterization with MRI is suggested if there is no contraindication. Left infratemporal fossa, facial, and scalp nonspecific gas foci may relate to recent IV access. If gas extension from a neck or chest is of concern, advise dedicated imaging. Findings discussed with stroke neurology housestaff at 10:35 AM Signed: Raul Alva MDRepnort[facility] Verified Date/Time: 07/31/2017 10:40:54 Reading Location: [address] Neuro Reading Room - GLUCOSE [id number] 12:04:00* Test Item Value Reference Range Comments POC-GLUCOSE METER (BEAKER) (test kjbl=6106) 194 mg/dL 70-110 TESTED AT [address] [address] RAD, CHEST, 1 VIEW, NON [id number] 08:45:00Reason for exam:->sobShould this be performed at the bedside?->YesFINAL REPORT Chest one view. Clinical history: sob Comparison: May 08, 2014 Discussion: A frontal chest is provided. Cardiomediastinal contours are unremarkable. There is no consolidation, jalen pulmonary edema, pneumothorax, or pleural effusion. Osseous structures demonstrate degenerative changes. Signed: Channing Benites Verified Date/Time: 07/06/2017 08:45:22 Reading Location: [facility] Radiology Reading Room -GLUCOSE [id number] 08:06:00* Test Item Value Reference Range Comments POC-GLUCOSE METER (BEAKER) (test uxns=4148) 168 mg/dL 70-[address] [facility] [address] [facility] [address] POCT-GLUCOSE [id number] 21:38:00* Test Item Value Reference Range Comments POC-GLUCOSE METER (BEAKER) (test qzuo=8806) 175 mg/dL 70-110 TESTED AT [address] [address] POCT-GLUCOSE [id number] 17:21:00* Test Item Value Reference Range Comments POC-GLUCOSE METER (BEAKER) (test xelz=8287) 171 mg/dL 70-[address] [facility] [address] [facility] [address] POCT-GLUCOSE [id number] 16:19:00* Test Item Value Reference Range Comments POC-GLUCOSE METER (BEAKER) (test aeyg=7935) 81 mg/dL 70-110 TESTED AT [place] [id number] [facility] [address] B-TYPE NATRIURETIC FACTOR (BNP)2017-07-05 14:40:00* Test Item Value Reference Range Comments B-TYPE NATRIURETIC PEPTIDE (BEAKER) (test fuxm=616) 37 pg/mL 0-100 TROPONIN [id number] 14:15:00* Test Item Value Reference Range Comments TROPONIN I (BEAKER) (test obue=650) < ng/mL 0.00-0.03 Troponin I (TnI) levels must be interpreted in the context of the presenting sym ptoms and the clinical findings. Elevated TnI levels indicate myocardial damage, but are not specific for ischemic heart disease. Elevated TnI levels are seen in patients with other cardiac conditions (including myocarditis and congestive h eart failure), and slight TnI elevations occur in patients with other conditions , including sepsis, renal failure, acidosis, acute neurological disease, and per sistent tachyarrhythmia.[id number] 13:47:00* Test Item Value Reference Range Comments D-DIMER QUANTITATIVE (BEAKER) (test mcys=290) 0.49 MG/L FEU <0.50 Intended Use: The D-Dimer Assay can be used to aid in the diagnosis of Deep Vein Thrombosis (DVT) and Pulmonary Embolism Disease (PED).In patients with low pre- test probability, various studies concerning STA Liatest D-dimer test have repor aaron that with a cutoff value of 0.50 MG/L FEU, the Negative Predictive Value (OPERATIONS EXECUTIVE V) regarding the exclusion of thrombosis is within 95-100% range.POCT-GLUCOSE [id number] 11:56:00* Test Item Value Reference Range Comments POC-GLUCOSE METER (BEAKER) (test dpol=9548) 137 mg/dL 70-110 TESTED AT [address] [address] OSMOLALITY, [id number] 10:10:00* Test Item Value Reference Range Comments OSMOLALITY, SERUM (BEAKER) (test zaqb=130) 292 mOsm/kg 280-303 POCT-GLUCOSE [id number] 09:01:00* Test Item Value Reference Range Comments POC-GLUCOSE METER (BEAKER) (test rdxe=6694) 160 mg/dL 70-110 TESTED AT [address] [address] BASIC METABOLIC [id number] 07:19:00* Test Item Value Reference Range Comments SODIUM (BEAKER) (test oxlj=289) 140 meq/L 136-145 POTASSIUM (BEAKER) (test ulvq=075) 3.7 meq/L 3.5-5.1 CHLORIDE (BEAKER) (test cquy=698) 104 meq/L 98-107 CO2 (BEAKER) (test bjtp=817) 27 meq/L 22-29 BLOOD UREA NITROGEN (BEAKER) (test awyf=097) 11 mg/dL 7-21 CREATININE (BEAKER) (test yyav=669) 0.73 mg/dL 0.57-1.25 GLUCOSE RANDOM (BEAKER) (test nkok=528) 114 mg/dL 70-105 CALCIUM (BEAKER) (test eohk=399) 8.9 mg/dL 8.4-10.2 EGFR (BEAKER) (test swiw=7857) 79 mL/min/1.73 sq m ESTIMATED GFR IS NOT ACCURATE CREATININE CLEARANCE IN PREDICTING GLOMERULAR FILTRATION RATE. ESTIMATED GFR IS NOT APPLICABLE FOR DIALYSIS PATIENTS. TROPONIN [id number] 06:03:00* Test Item Value Reference Range Comments TROPONIN I (BEAKER) (test lwam=161) < ng/mL 0.00-0.03 Troponin I (TnI) levels must be interpreted in the context of the presenting sym ptoms and the clinical findings. Elevated TnI levels indicate myocardial damage, but are not specific for ischemic heart disease. Elevated TnI levels are seen in patients with other cardiac conditions (including myocarditis and congestive h eart failure), and slight TnI elevations occur in patients with other conditions , including sepsis, renal failure, acidosis, acute neurological disease, and per sistent tachyarrhythmia.[id number] 03:59:00* Test Item Value Reference Range Comments CORTISOL, TOTAL (BEAKER) (test owyj=9035) 9.3 ug/dL 3.7-19.4 TSH/FREE T4 IF [id number] 03:59:00* Test Item Value Reference Range Comments THYROID STIMULATING HORMONE (BEAKER) (test jsol=816) 1.24 uIU/mL 0.35-4.94 BASIC METABOLIC [id number] 03:37:00* Test Item Value Reference Range Comments SODIUM (BEAKER) (test ufux=902) 140 meq/L 136-145 POTASSIUM (BEAKER) (test ivts=865) 3.5 meq/L 3.5-5.1 CHLORIDE (BEAKER) (test bbwu=338) 105 meq/L 98-107 CO2 (BEAKER) (test qbth=779) 25 meq/L 22-29 BLOOD UREA NITROGEN (BEAKER) (test qhlh=501) 11 mg/dL 7-21 CREATININE (BEAKER) (test bdvm=380) 0.71 mg/dL 0.57-1.25 GLUCOSE RANDOM (BEAKER) (test hcrp=606) 139 mg/dL 70-105 CALCIUM (BEAKER) (test ptns=166) 8.9 mg/dL 8.4-10.2 EGFR (BEAKER) (test ajgg=6474) 82 mL/min/1.73 sq m ESTIMATED GFR IS NOT ACCURATE CREATININE CLEARANCE IN PREDICTING GLOMERULAR FILTRATION RATE. ESTIMATED GFR IS NOT APPLICABLE FOR DIALYSIS PATIENTS. CBC W/PLT COUNT & AUTO [id number] 03:17:00* Test Item Value Reference Range Comments WHITE BLOOD CELL COUNT (BEAKER) (test mnrk=534) 9.4 K/ L 3.5-10.5 RED BLOOD CELL COUNT (BEAKER) (test yfsw=122) 4.35 M/ L 3.93-5.22 HEMOGLOBIN (BEAKER) (test ymkh=058) 12.7 GM/DL 11.2-15.7 HEMATOCRIT (BEAKER) (test dxxk=235) 38.6 % 34.1-44.9 MEAN CORPUSCULAR VOLUME (BEAKER) (test prnv=655) 88.7 fL 79.4-94.8 MEAN CORPUSCULAR HEMOGLOBIN (BEAKER) (test mdiy=067) 29.2 pg 25.6-32.2 MEAN CORPUSCULAR HEMOGLOBIN CONC (BEAKER) (test adnm=262) 32.9 GM/DL 32.2-35.5 RED CELL DISTRIBUTION WIDTH (BEAKER) (test qxrr=492) 13.4 % 11.7-14.4 PLATELET COUNT (BEAKER) (test fypj=206) 210 K/CU MM 150-450 MEAN PLATELET VOLUME (BEAKER) (test hgil=370) 10.4 fL 9.4-12.3 NUCLEATED RED BLOOD CELLS (BEAKER) (test rcxf=024) 0 /100 WBC 0-0 NEUTROPHILS RELATIVE PERCENT (BEAKER) (test osdx=466) 53 % LYMPHOCYTES RELATIVE PERCENT (BEAKER) (test qvqd=467) 35 % MONOCYTES RELATIVE PERCENT (BEAKER) (test ypoy=129) 8 % EOSINOPHILS RELATIVE PERCENT (BEAKER) (test idwv=240) 4 % BASOPHILS RELATIVE PERCENT (BEAKER) (test yvrj=874) 1 % NEUTROPHILS ABSOLUTE COUNT (BEAKER) (test znke=272) 4.97 K/ L 1.56-6.13 LYMPHOCYTES ABSOLUTE COUNT (BEAKER) (test bxsb=832) 3.29 K/ L 1.18-3.74 MONOCYTES ABSOLUTE COUNT (BEAKER) (test yexv=182) 0.73 K/ L 0.24-0.36 EOSINOPHILS ABSOLUTE COUNT (BEAKER) (test zlil=338) 0.33 K/ L 0.04-0.36 BASOPHILS ABSOLUTE COUNT (PEDROAKER) (test qzzr=321) 0.07 K/ L 0.01-0.08 IMMATURE GRANULOCYTES-RELATIVE PERCENT (KARIE) (test oxoy=0679) 0 % 0-1 POCT-GLUCOSE [id number] 22:51:00* Test Item Value Reference Range Comments POC-GLUCOSE METER (KARIE) (test qsxg=2691) 88 mg/dL 70-[address] [facility] [address] [facility] [id number]
--- NOTE | 2019-02-08 16:23 | NUR ---
NOTIFIED BINGO FLOATER FOR VENOUS DOPPLER.
[2019-02-08] MEDS ORDERED: HYDROCODONE/APAP 5MG-325MG TAB PO ONE (16:30)
--- NOTE | 2019-02-08 16:44 | Diagnostic Imaging Report ---
Exam: Right foot series, 2 views. Clinical History: Roosevelt pop in foot, pain radiates to knee for 2 days Comparison: None. Findings: 2 views of the right foot. There is decreased bone mineralization, which limits evaluation of bony structures.. Negative for acute, displaced fracture or dislocation. Minimal degenerative changes in the first metatarsophalangeal joint. Posterior calcaneal enthesophyte. No significant soft tissue swelling. Impression: 1. Decreased bone mineralization, which limits evaluation of the bony structures. No acute, displaced fracture or dislocation within the limitations of the study. Signed by: Dr. Pantera Alanis M.D. on 02/08/2019 4:41 PM
--- NOTE | 2019-02-08 17:15 | NUR ---
ULTRASOUND AT BEDSIDE FOR VENOUS DOPPLER. NO SIGNS OF ACUTE DISTRESS NOTED.
[2019-02-08] MEDS ORDERED: ULTRAM50 MG PO (18:00)
--- NOTE | 2019-02-08 18:00 | Diagnostic Imaging Report ---
ULTRASOUND RIGHT LOWER EXTREMITY Color Doppler evaluation was utilized to supplement the evaluation. HISTORY: Right leg pain, fell COMPARISON: None available. DISCUSSION: The femoral, greater saphenous and popliteal veins were examined using hatfield scale compression ultrasound with the aid of color flow and pulsed wave doppler. The common femoral, greater saphenous, superficial femoral, profunda femoris and popliteal veins are normally compressible. Normal pulsed wave Doppler responses with calf augmentation. IMPRESSION: No evidence of deep venous thrombosis in the lower extremity as described above. Signed by: Dr. Román Deleon D.O., M.M.M. on 02/08/2019 5:57 PM
[2019-02-08 18:11] VITALS: BP 142/73
== END 2019-02-08 18:14 | disposition home or self-care (01) ==
LOC: FSED 15:45
DX: S93.621A Sprain of tarsometatarsal ligament of right foot, initial encounter (principal); S39.011A Strain of muscle, fascia and tendon of abdomen, initial encounter; G89.11 Acute pain due to trauma; X50.9XXA Other and unspecified overexertion or strenuous movements or postures, initial encounter; Y92.512 Supermarket, store or market as the place of occurrence of the external cause
CPT/HCPCS: 93970; 93971; 99283